=== PATIENT | female | born 1970 | race Two or more races ===

== ENCOUNTER 2021-04-04 19:28 | Emergency (ER) | payer MEDICAID ==
[~2021-04-04] VITALS: Ht 152.4 cm; Wt 71.2 kg
[~2021-04-04 19:28] MED LIST: Pantoprazole Sodium Sesquihydr PO
[2021-04-05 04:20] VITALS: BP 160/89
== END 2021-04-05 04:26 | disposition home or self-care (01) ==
LOC: ER 19:29
DX: S30.1XXA Contusion of abdominal wall, initial encounter (principal); M79.9 Soft tissue disorder, unspecified; R51.9 Headache, unspecified; K21.9 Gastro-esophageal reflux disease without esophagitis; I10 Essential (primary) hypertension; Z94.4 Liver transplant status; W18.39XA Other fall on same level, initial encounter; Y93.89 Activity, other specified; Y92.89 Other specified places as the place of occurrence of the external cause; Y99.8 Other external cause status
CPT/HCPCS: 73060; 73090; 73590; 74176